=== PATIENT | female | born 1965 | race Caucasian/White ===

== ENCOUNTER 2016-09-01 21:26 | Emergency (ER) | payer MEDICAID, OTHER ==
--- NOTE | 2016-09-01 22:42 | ED Physician Chart ---
Chief Complaint/HPI - Patient Information Date Seen:: 09/01/16 Time Seen:: 22:37 Chief Complaint:: cut lt hand History of Present Illness:: pt was using a knife to trim hedge...was reaching w other hand to pull a branch and stuck her l hand w knife. injury was 2 hrs ago..pt washed hand after. cut is to lt hand at thenar webspace. bleed was brisk earlier but has resolved. pt was txd for dental carry w tooth extraction last week. was on abx but finished. has pain med from dentist. pt admits is homeless..was [place] [facility]. has education and sees psychiatrist. is on psych meds but feels stable lately. Allergies:: Allergies Allergy/AdvReac Type Severity Reaction Status Date / Time No Known Allergies Allergy Verified 09/01/16 22:00 Vitals:: Vital Signs - 8 hr 09/01/16 21:40 Temp 98.4 F HR 71 RR 18 BP 132/49 O2 Sat % 97 Historian:: Patient Review of Systems - Review of Systems General/Constitutional: No fever, No chills, No weight loss, No weakness, No diaphoresis, No edema, No loss of appetite Skin: No skin lesions, No rash, No bruising Head: No headache, No light-headedness Eyes: No loss of vision, No pain, No diplopia ENT: No earache, No nasal drainage, No sore throat, No tinnitus Neck: No neck pain, No swelling, No thyromegaly, No stiffness, No mass noted Cardio Vascular: No chest pain, No palpitations, No PND, No orthopnea, No edema Pulmonary: No SOB, No cough, No sputum, No wheezing GI: No nausea, No vomiting, No diarrhea, No pain, No melena, No hematochezia, No constipation, No hematemesis G/U: No dysuria, No frequency, No hematuria Musculoskeletal: No bone or joint pain, No back pain, No muscle pain, Other (l hand pain) Endocrine: No polyuria, No polydipsia Psychiatric: Prior psych history, No depression, No anxiety, No suicidal ideation Hematopoietic: No bruising, No lymphadenopathy Allergic/Immuno: No urticaria, No angioedema Neurological: No syncope, No focal symptoms, No weakness, No paresthesia, No headache, No seizure, No dizziness, No confusion, No vertigo Past Medical History - Past Medical History Social History: Smoker, Homeless Psychiatricy History: Other (ptsd) Medication: Reviewed Family Medical History - Family Member Mother Hx Family Cancer: Yes (BRAIN CA) Physical Exam - Physical Examination General/Constitutional: Awake, Well-developed, well-nourished, Alert, No distress, GCS 15, Non-toxic appearing, Ambulatory Head: Atraumatic Eyes: Lids, conjuctiva normal, PERRL, EOMI Skin: Nl inspection, No rash, No skin lesions, No ecchymosis, Well hydrated, No lymphadenopathy ENMT: External ears, nose nl, Nasal exam nl, Lips, teeth, gums nl Neck: Nontender, Full ROM w/o pain, No JVD, No nuchal rigidity, No bruit, No mass, No stridor Respiratory: Nl effort/Exclusion, Clear to Auscultation, No Wheeze/Rhonchi/Rales Cardio Vascular: RRR, No murmur, gallop, rubs, NL S1 S2 GI: No tenderness/rebounding/guarding, No organomegaly, No hernia, Normal BS's, Nondistended, No mass/bruits, No McBurney tenderness : No CVA tenderness Extremities: No tenderness or effusion, Full ROM, normal strength in all extremities, No edema, Normal digits & nails Other Extremities comments:: l hand has a 1.5 cm gapin g lac over thenar webspace. ok rom of thumb. ok sensation of m/l thumb. cap refill ok. exam into open wound w light and forceps shows no f.b. nor deep damage from wound. no n/v inj. no open joint capsule etc. Neuro/Psych: Alert/oriented, DTR's symmetric, Normal sensory exam, Normal motor strength, Judgement/insight normal, Mood normal, Normal gait, No focal deficits Misc: normal gait, Normal back, No paraspinal tenderness Assessment Location:: left thenar webspace lac 1.5 cm w deep potential space opened. Laceration Type:: Intermediate Wound Length: 1.5 cm Prep/Irrigation:: betadyne prep. ns copious irrigation. explored no f.b. l hand has a 1.5 cm gapin g lac over thenar webspace. ok rom of thumb. ok sensation of m/l thumb. cap refill ok. exam into open wound w light and forceps shows no f.b. nor deep damage from wound. no n/v inj. no open joint capsule etc. closed wound w 5.0 nylon x 3 simple sutures. Inspection: NO FB ED Septic Shock - . Is Septic Shock (SBP<90, OR Lactate>4 mmol\L) present?: No - <6hrs of presentation: Vital Signs: Vital Signs - 8 hr 09/01/16 21:40 Temp 98.4 F HR 71 RR 18 BP 132/49 O2 Sat % 97 Reassessment (Disposition) - Reassessment Reassessment Condition:: Improved - Diagnosis Diagnosis:: 1.5 cm lac to left thenar webspace - Aftercare/Follow up Instructions Aftercare/Follow-Up Instructions:: Counseled pt regarding lab results/diagnosis & need follow up, Refer to Discharge Instructions Medication Prescribed:: keflex - Patient Disposition Discharge/Transfer:: Home Condition at Disposition:: Improved
[2016-09-01] MEDS ORDERED: Bacitracin pkt 1 gm Pkt TP STA (22:45)
[2016-09-01] MEDS ORDERED: Bacitracin pkt 1 gm Pkt TP ONE (22:55)
== END 2016-09-01 23:30 | disposition home or self-care (01) ==
LOC: ER 21:26
DX: S61.412A Laceration without foreign body of left hand, initial encounter (principal); F17.200 Nicotine dependence, unspecified, uncomplicated; Z59.0 Homelessness; W26.0XXA Contact with knife, initial encounter; Y93.89 Activity, other specified; Y92.89 Other specified places as the place of occurrence of the external cause; Y99.8 Other external cause status
CPT/HCPCS: 12001; A4217; J2001; Z7502; Z7610

== ENCOUNTER 2016-11-28 10:45 | Emergency (ER) | payer OTHER ==
--- NOTE | 2016-12-01 14:38 | ER Physician Documentation ---
DATE OF SERVICE: IDENTIFICATION: A 51-year-old female patient. The patient's chief complaint is that she has some pain in the left upper arm and some generalized aches and pains and she has a few medical conditions. She brought her son for checkups. She and her son both live in a ____, both homeless. She has gotten 3 list of medications that will be listed below. HISTORY OF PRESENT ILLNESS: The patient has no definite history of any fracture, falls, or injury, etc. She says she has some aches in the left side of her arm, mostly in between the elbow and wrist, but I do not find anything positive over there. There is no history of any fracture or injury, etc., that could be noted. She has history of some aches and pains for which she takes the following medications: Tramadol 50 mg 1 tablet by mouth every 24 hours and as needed, she takes gabapentin 100 mg 1 capsule by mouth 3 times a day plus she takes hydroxyzine pamoate 50 mg capsule, the generic for Vistaril tablet, for dizziness. Other than that, the patient does not complain of any significant complaint. She has a dog with her. She denies any diabetes, hypertension, rheumatic fever, valvular heart disease, pericardial disease, cardiomyopathy, any significant endocrine disease. She looks good. She wears clean clothes. She has a dog. She has no other ____. REVIEW OF SYSTEMS: Essentially benign and negative. She does not smoke. Occasionally wine drinker. PAST HISTORY: Essentially benign and negative except for the right tooth was hurting and was removed by her dentist and that area still sometimes occasionally hurts. She was advised to see her dentist again in the future FAMILY HISTORY: Benign and negative. PERSONAL HISTORY: She is from her , has 2 children, one son was on bed #5, who was brought here for dental infection. She does not have anything major going on with her as far as physical condition, impairment, or other problems. For her medical or psychiatric problems, she is taking all this 3 medications that have been prescribed. PHYSICAL EXAMINATION: GENERAL: The patient appears to be awake, alert, oriented, not in any acute cardiorespiratory distress. She appears to be a smart woman, does not appear to be in any acute cardiorespiratory distress. Overall general examination is normal. HEENT: Eyes are normal. Pupils are equal and reacting to light. NECK: Supple. No meningeal signs are noted. No evidence of any deep vein thrombophlebitis. There is no evidence of any fracture. CHEST: Clear, without any rales, rhonchi, or bronchial breathing. ABDOMEN: Soft, benign, and negative. Liver and spleen not enlarged. No free fluid in the abdominal cavity. CENTRAL NERVOUS SYSTEM: Within normal limits. Moves all extremities. No evidence of any paralysis. Walking without any problems. MEDICAL DECISION MAKING: Lab workup was not necessary to be ordered as there is nothing positive finding that is seen. So, that the working diagnosis is pain in the left upper extremity and more so slightly in the left arm in between the left elbow and the left wrist. I do not see any evidence of any fracture, injury, trauma, laceration, or no injury. There is no tenderness. There is no guarding. There is no evidence of any injury. She said she might have had some injury occurred probably 2-3 weeks ago that she does not remember and it is possible that this may be the cause. Other diagnoses that she has, she has depression. She has generalized aches and pains for which she takes tramadol. The patient has other neurogenic aches and pains for which she takes gabapentin also. Since we are not going to do any more blood workup or anything that is not necessary for her, the patient will be discharged home. Based on this diagnosis that she has left arm pain, no apparent cause is detected, she has some mild depression and she has some aches and pains for which she takes tramadol as I mentioned plus she takes gabapentin as well she takes hydroxyzine pamoate for anxiety, this is generic for Vistaril. JOB# [id number]
== END 2016-11-28 12:16 | disposition home or self-care (01) ==
LOC: ER 10:45
DX: M79.622 Pain in left upper arm (principal); F32.9 Major depressive disorder, single episode, unspecified
CPT/HCPCS: Z7502

== ENCOUNTER 2017-04-05 12:25 | Emergency (ER) | payer OTHER ==
--- NOTE | 2017-04-05 12:55 | ED Physician Chart ---
ED Chief Complaint/HPI - Patient Information Date Seen:: 04/05/17 Time Seen:: 12:30 Chief Complaint:: Insect Bite History of Present Illness:: onset x 3 days of localized redness and swelling at right ankle after an insect bite 2 days ago; pt's last tetanus shot: < 5 years; UTD; pt denies LOC, H/As S/T , neck pain, C/P, SOB, Abd. pain, A/N/V/D/C, fever, chills, or urinary s/s Allergies:: Allergies Allergy/AdvReac Type Severity Reaction Status Date / Time morphine Allergy Verified 04/05/17 12:43 Historian:: Patient Review:: Nurse's Note Reviewed ED Review of Systems - Review of Systems General/Constitutional: No fever, No chills, No weight loss, No weakness, No diaphoresis, No edema, No loss of appetite Skin: Skin lesions, Rash, No bruising Head: No headache, No light-headedness Eyes: No loss of vision, No pain, No diplopia ENT: No earache, No nasal drainage, No sore throat, No tinnitus Neck: No neck pain, No swelling, No thyromegaly, No stiffness, No mass noted Cardio Vascular: No chest pain, No palpitations, No PND, No orthopnea, No edema Pulmonary: No SOB, No cough, No sputum, No wheezing GI: No nausea, No vomiting, No diarrhea, No pain, No melena, No hematochezia, No constipation, No hematemesis G/U: No dysuria, No frequency, No hematuria, No nacturia [employer]: No vaginal discharge, No abnormal vaginal bleed, No contraction Musculoskeletal: No bone or joint pain, No back pain, No muscle pain Endocrine: No polyuria, No polydipsia Psychiatric: Prior psych history, No depression, No anxiety, No suicidal ideation, No homicidal ideation, No auditory hallucination, No visual hallucination, Other (PTSD) Hematopoietic: No bruising, No lymphadenopathy Allergic/Immuno: No urticaria, No angioedema Neurological: No syncope, No focal symptoms, No weakness, No paresthesia, No headache, No seizure, No dizziness, No confusion, No vertigo ED Past Medical History - Past Medical History Obtainable: Yes Past Medical History: HTN Family History: HTN Social History: Non Smoker, No Alcohol, No Drug Use, Single Surgical History: Cholecystectomy Psychiatricy History: Other (PTSD) Medication: Reviewed Family Medical History - Family Member Mother History Unknown: Yes Hx Family Cancer: Yes (BRAIN CA) ED Physical Exam - Physical Examination General/Constitutional: Awake, Well-developed, well-nourished, Alert, No distress, GCS 15, Non-toxic appearing, Ambulatory Head: Atraumatic Eyes: Lids, conjuctiva normal, PERRL, EOMI Skin: Nl inspection, No rash, No skin lesions, No ecchymosis, Well hydrated, No lymphadenopathy Other Skin comments:: + Localized Cellulitis around an insect bite PW at the Right Ankle region; no FBs; full ROMs of all joints; no septic joints; no ligament instability; good motor, tendon, and sensory functions; good NV functions ENMT: External ears, nose nl, TM canals nl, Nasal exam nl, Lips, teeth, gums nl , Oropharynx nl, Tonsils nl Neck: Nontender, Full ROM w/o pain, No JVD, No nuchal rigidity, No bruit, No mass, No stridor Other Neck comments:: supple; no meningeal signs; no cervical tenderness; no bruits Respiratory: Nl effort/Exclusion, Clear to Auscultation, No Wheeze/Rhonchi/Rales Cardio Vascular: RRR, No murmur, gallop, rubs, NL S1 S2, Carotid/Femoral/Distal pulses equal bilaterally GI: No tenderness/rebounding/guarding, No organomegaly, No hernia, Normal BS's, Nondistended, No mass/bruits, No McBurney tenderness Other GI comments:: no pulsatile masses : No CVA tenderness Extremities: No tenderness or effusion, Full ROM, normal strength in all extremities, No edema, Normal digits & nails Neuro/Psych: Alert/oriented, DTR's symmetric, Normal sensory exam, Normal motor strength, Judgement/insight normal, Mood normal, Normal gait, No focal deficits Misc: Normal back, No paraspinal tenderness ED Septic Shock - . Is Septic Shock (SBP<90, OR Lactate>4 mmol\L) present?: No ED Reassessment (Disposition) - Reassessment Reassessment:: pt is asymptomatic upon discharge Reassessment Condition:: Improved - Diagnosis Diagnosis:: Localized Cellulitis; Rash; Puncture Wound; Insect Bite; Insect Bite Wound; Animal Bite - Aftercare/Follow up Instructions Aftercare/Follow-Up Instructions:: Counseled pt regarding lab results/diagnosis & need follow up, Refer to Discharge Instructions, Counseled pt & family regarding lab results/diagnosis & need follow up Medication Prescribed:: Rx: Keflex 500mg po qid x 10 days; Neosporin Ointment bid x 14 days; Warm Compresses to affected areas; Skin/Wound Care Instructions; take medications as prescribed - Patient Disposition Discharge/Transfer:: Home Condition at Disposition:: Stable, Improved (RTER prn if existing s/s reoccur and/or get worse and/or any other new s/s occur; ACIs given for all above Dx; Refer to Distribution Estimator/Vascular Surgeon/Manager Civil MURPHY; F/U with PMD in one day or prn; RTER prn if concerned)
== END 2017-04-05 13:20 | disposition home or self-care (01) ==
LOC: ER 12:25
DX: L03.115 Cellulitis of right lower limb (principal); I10 Essential (primary) hypertension; S90.561A Insect bite (nonvenomous), right ankle, initial encounter; W57.XXXA Bitten or stung by nonvenomous insect and other nonvenomous arthropods, initial encounter; Y93.89 Activity, other specified; Y92.89 Other specified places as the place of occurrence of the external cause; Y99.8 Other external cause status
CPT/HCPCS: Z7502

== ENCOUNTER 2017-05-19 19:56 | Inpatient (IN) | payer OTHER ==
[2017-05-19 20:34] LABS: URINE MICROSCOPIC INDICATED? YES; URINE SOURCE RANDOM
[2017-05-19 20:37] LABS: URINE BILIRUBIN NEGATIVE (NEGATIVE); URINE BLOOD LARGE (NEGATIVE); URINE GLUCOSE (UA) NEGATIVE (NEGATIVE); URINE KETONE NEGATIVE (NEGATIVE); URINE LEUKOCYTE ESTERASE TRACE (NEGATIVE); URINE NITRATE NEGATIVE (NEGATIVE); URINE PROTEIN 100 mg/dL (NEGATIVE); URINE UROBILINOGEN 0.2 E.U./dL (0.2 - 1.0)
[2017-05-19 20:45] LABS: URINE COLOR YELLOW
[2017-05-19 20:46] LABS: URINE CLARITY HAZY (CLEAR)
[2017-05-19 20:55] LABS: URINE BACTERIA NONE SEEN /hpf (NONE SEEN); URINE EPITHELIAL CELLS FEW /lpf (FEW); URINE RBC >100 /hpf (0-5)
[2017-05-19] MEDS ORDERED: Sodium Chloride 0.9% 1,000 ML IV ONE (20:57)
[2017-05-19] MEDS ORDERED: cefTRIAXone 1 GM in Sodium Chloride 0.9% 50 ML IV ONE (20:59)
--- NOTE | 2017-05-19 21:05 | ED Physician Chart ---
ED Chief Complaint/HPI - Patient Information Date Seen:: 05/19/17 Time Seen:: 20:00 Chief Complaint:: Abdominal Pain History of Present Illness:: onset x one day or intermittent, diffuse, crampy abdominal pain and flank pain with N/V/D; no trauma, H/As, S/T, neck pain, C/P, cough, A/C, fever, chills, or urinary s/s Allergies:: Allergies Allergy/AdvReac Type Severity Reaction Status Date / Time morphine Allergy Verified 05/19/17 20:22 Vitals:: Vital Signs - 8 hr 05/19/17 20:00 Temp 98.5 F HR 60 RR 18 BP 137/71 O2 Sat % 98 Historian:: Patient Review:: Nurse's Note Reviewed ED Review of Systems - Review of Systems General/Constitutional: No fever, No chills, No weight loss, No weakness, No diaphoresis, No edema, No loss of appetite Skin: No skin lesions, No rash, No bruising Head: No headache, No light-headedness Eyes: No loss of vision, No pain, No diplopia ENT: No earache, No nasal drainage, No sore throat, No tinnitus Neck: No neck pain, No swelling, No thyromegaly, No stiffness, No mass noted Cardio Vascular: No chest pain, No palpitations, No PND, No orthopnea, No edema Pulmonary: No SOB, No cough, No sputum, No wheezing GI: Nausea, Vomiting, Diarrhea, Pain, No melena, No hematochezia, No constipation, No hematemesis G/U: No dysuria, No frequency, No hematuria, No nacturia Grinder: No vaginal discharge, No abnormal vaginal bleed, No contraction Musculoskeletal: No bone or joint pain, No back pain, No muscle pain Endocrine: No polyuria, No polydipsia Psychiatric: No prior psych history, No depression, No anxiety, No suicidal ideation, No homicidal ideation, No auditory hallucination, No visual hallucination Hematopoietic: No bruising, No lymphadenopathy Allergic/Immuno: No urticaria, No angioedema Neurological: No syncope, No focal symptoms, No weakness, No paresthesia, No headache, No seizure, No dizziness, No confusion, No vertigo ED Past Medical History - Past Medical History Obtainable: Yes Past Medical History: HTN, PUD/GERD, Arthritis Family History: HTN Social History: Non Smoker, No Alcohol, No Drug Use, Surgical History: Cholecystectomy Psychiatricy History: None Medication: Reviewed Family Medical History - Family Member Mother History Unknown: Yes Hx Family Cancer: Yes (BRAIN CA) ED Physical Exam - Physical Examination General/Constitutional: Awake, Well-developed, well-nourished, Alert, No distress, GCS 15, Non-toxic appearing, Ambulatory Head: Atraumatic Eyes: Lids, conjuctiva normal, PERRL, EOMI Skin: Nl inspection, No rash, No skin lesions, No ecchymosis, Well hydrated, No lymphadenopathy ENMT: External ears, nose nl, TM canals nl, Nasal exam nl, Lips, teeth, gums nl , Oropharynx nl, Tonsils nl Neck: Nontender, Full ROM w/o pain, No JVD, No nuchal rigidity, No bruit, No mass, No stridor Respiratory: Nl effort/Exclusion, Clear to Auscultation, No Wheeze/Rhonchi/Rales Cardio Vascular: RRR, No murmur, gallop, rubs, NL S1 S2, Carotid/Femoral/Distal pulses equal bilaterally GI: No tenderness/rebounding/guarding, No organomegaly, No hernia, Normal BS's, Nondistended, No mass/bruits, No McBurney tenderness, Rectum exam nl : No CVA tenderness Extremities: No tenderness or effusion, Full ROM, normal strength in all extremities, No edema, Normal digits & nails Neuro/Psych: Alert/oriented, DTR's symmetric, Normal sensory exam, Normal motor strength, Judgement/insight normal, Mood normal, Normal gait, No focal deficits Misc: Normal back, No paraspinal tenderness ED Labs/Radiology/EKG Results - Lab Results Results: Laboratory Tests 05/19/17 05/19/17 20:30 20:30 Urine Source RANDOM Urine Color YELLOW Urine Clarity HAZY Urine pH 7.0 Ur Specific [place] 1.020 Urine Protein 100 H Urine Glucose (UA) NEGATIVE Urine Ketones NEGATIVE Urine Blood LARGE H Urine Nitrate NEGATIVE Urine Bilirubin NEGATIVE Urine Urobilinogen 0.2 Ur Leukocyte Esterase TRACE H Urine RBC >100 H Urine WBC 2-5 Ur Epithelial Cells FEW Urine Bacteria NONE SEEN Urine Test NEGATIVE Comments:: U/A: + Blood; + Pyuria - Radiology Results Comments:: Right UVJ Calculus - EKG Interpretations EKG Time:: 20:30 Rate & Rhythm: 60; NSR Comments:: non-specific st-t changes ED Septic Shock - . Is Septic Shock (SBP<90, OR Lactate>4 mmol\L) present?: No - <6hrs of presentation: Vital Signs: Vital Signs - 8 hr 05/19/17 20:00 Temp 98.5 F HR 60 RR 18 BP 137/71 O2 Sat % 98 ED Reassessment (Disposition) - Diagnosis Diagnosis:: Dx: Abdominal Pain; Flank Pain; Hematuria; UTI; Nephrolithiasis; Ureterolithiasis; N/V - Aftercare/Follow up Instructions Aftercare/Follow-Up Instructions:: Counseled pt regarding lab results/diagnosis & need follow up, Counseled pt & family regarding lab results/diagnosis & need follow up - Patient Disposition Discharge/Transfer:: Acute Care w/in this hosp Accepting Physician:: Dr. Good Time Called:: 2149 Time Responded:: 21:50 Admitted to:: Med/Surg Spoke to:: Dr. Good Admitting Medical Physician:: Dr. Good Condition at Disposition:: Stable, Improved
[2017-05-19 21:19] LABS: % BASOPHILS 0.5 % (0.0-2.0); % EOSINOPHILS 0.9 % (0.0-5.0); % LYMPHOCYTES 11.4 % (20.0-50.0); % MONOCYTES 4.4 % (2.0-10.0); % NEUTROPHILS 82.8 % (40.0-80.0); EOSINOPHILE ABSOLUTE 0.1 Th/cmm (0.1-0.4); HEMATOCRIT 37.8 % (41.0-60); HEMOGLOBIN 12.6 gm/dL (12-16); LYMPHOCYTE ABSOLUTE 0.9 Th/cmm (1.5-3.0); MEAN CELL VOLUME 88.3 fl (81-100); MEAN CORPUSCULAR HEMOGLOBIN 29.4 pg (27.0-31.0); MEAN CORPUSCULAR HGB CONC 33.3 pg (28.0-36.0); MEAN PLATELET VOLUME 7.9 fl; MONOCYTE ABSOLUTE 0.3 Th/cmm (0.3-1.0); NEUTROPHILE ABSOLUTE 6.6 Th/cmm (1.8-8.0); PLATELET COUNT 230 Th/cmm (150-400); RED BLOOD COUNT 4.29 Mil/cmm (3.80-5.10); RED CELL DISTRIBUTION WIDTH 12.5 % (11.5-20.0); WHITE BLOOD COUNT 7.9 Th/cmm (4.8-10.8)
[2017-05-19 21:26] LABS: INR 0.93 (0.5-1.4); PROTHROMBIN TIME (TEST) 9.7 SECONDS (9.5-11.5)
[2017-05-19 21:34] LABS: ALB/GLOB RATIO 1.7 (1.0-1.8); ALBUMIN 3.7 gm/dL (3.7-5.3); ALKALINE PHOSPHATASE 62 U/L (34-104); ANION GAP 8.9 (7.0-16.0); BILIRUBIN,TOTAL 0.3 mg/dL (0.3-1.0); BUN - UREA NITROGEN 10 mg/dL (7-25); CALCIUM SERUM 8.8 mg/dL (8.6-10.3); CARBON DIOXIDE 28.5 mEq/L (21.0-31.0); CHLORIDE 104 mEq/L (98-107); CHOLESTEROL 139 mg/dL (<200); CREATININE - SERUM 0.7 mg/dL (0.6-1.2); GFR AFRICAN-AMERICAN > 60.0 ml/min (>90); GFR NON AFRICAN-AMERICAN > 60.0 ml/min; GLUCOSE 99 mg/dL (70-105); HDL -HIGH DENSITY LIPOPROTEIN 33 mg/dL (23-92); POTASSIUM SERUM 3.4 mEq/L (3.5-5.1); SGOT 15 U/L (13-39); SGPT/ALT 12 U/L (7-52); SODIUM SERUM 138 mEq/L (136-145); TOTAL PROTEIN,SERUM 5.9 gm/dL (6.0-8.3); TRIGLYCERIDES 196 mg/dL (<150)
[2017-05-19 21:35] LABS: AMYLASE SERUM 37 U/L (29-103); LIPASE 17 U/L (11-82)
[2017-05-19] MEDS ORDERED: HYDROmorphone 2 mg/mL 1mL Vial IVP PRN (22:48)
[2017-05-19] MEDS ORDERED: D5-0.45NS w/20 mEq KCL 1,000 ML IV SCH (23:00)
[2017-05-20] MEDS ORDERED: HYDROmorphone 1 mg/mL 1mL Syr IVP PRN (00:56)
[2017-05-20] MEDS: D5-0.45NS w/20 mEq KCL 1,000 ML IV SCH ×2 (04:00→15:42)
[2017-05-20 04:05] VITALS: BP 145/77
[2017-05-20 05:55] LABS: % BASOPHILS 0.5 % (0.0-2.0); % EOSINOPHILS 2.7 % (0.0-5.0); % LYMPHOCYTES 28.1 % (20.0-50.0); % MONOCYTES 6.9 % (2.0-10.0); % NEUTROPHILS 61.8 % (40.0-80.0); EOSINOPHILE ABSOLUTE 0.2 Th/cmm (0.1-0.4); HEMATOCRIT 33.9 % (41.0-60); HEMOGLOBIN 11.3 gm/dL (12-16); LYMPHOCYTE ABSOLUTE 1.6 Th/cmm (1.5-3.0); MEAN CELL VOLUME 87.8 fl (81-100); MEAN CORPUSCULAR HEMOGLOBIN 29.3 pg (27.0-31.0); MEAN CORPUSCULAR HGB CONC 33.3 pg (28.0-36.0); MONOCYTE ABSOLUTE 0.4 Th/cmm (0.3-1.0); NEUTROPHILE ABSOLUTE 3.4 Th/cmm (1.8-8.0); RED BLOOD COUNT 3.85 Mil/cmm (3.80-5.10); RED CELL DISTRIBUTION WIDTH 12.4 % (11.5-20.0)
[2017-05-20 05:58] LABS: PLATELET COUNT 176 Th/cmm (150-400); WHITE BLOOD COUNT 5.6 Th/cmm (4.8-10.8)
[2017-05-20 06:12] LABS: ALB/GLOB RATIO 1.8 (1.0-1.8); ALBUMIN 3.2 gm/dL (3.7-5.3); ALKALINE PHOSPHATASE 52 U/L (34-104); ANION GAP 6.4 (7.0-16.0); BILIRUBIN,TOTAL 0.2 mg/dL (0.3-1.0); BUN - UREA NITROGEN 9 mg/dL (7-25); CALCIUM SERUM 8.5 mg/dL (8.6-10.3); CARBON DIOXIDE 30.2 mEq/L (21.0-31.0); CHLORIDE 107 mEq/L (98-107); CREATININE - SERUM 0.8 mg/dL (0.6-1.2); GFR AFRICAN-AMERICAN > 60.0 ml/min (>90); GFR NON AFRICAN-AMERICAN > 60.0 ml/min; GLUCOSE 118 mg/dL (70-105); POTASSIUM SERUM 3.6 mEq/L (3.5-5.1); SGOT 13 U/L (13-39); SGPT/ALT 11 U/L (7-52); SODIUM SERUM 140 mEq/L (136-145)
--- NOTE | 2017-05-20 09:03 | Diagnostic Imaging Report ---
CT scan abdomen and pelvis without intravenous contrast HISTORY: Pain Total DLP equals 516 CTDI equals 11.0 Axial sections were obtained from the xiphoid process down to the pubic symphysis. The liver exhibits a homogeneous parenchyma. No focal lesions. The spleen appears normal. No abnormality seen in the region of the pancreas. There is relatively severe degree of hydronephrosis involving the right renal collecting system. An approximate 7 mm calculus noted within the dilated right renal pelvis. An approximate 3 mm calculus noted at the right ureterovesical junction. There is extensive haziness about the dilated right renal pelvis associated with perinephric stranding. The changes may be secondary to obstruction. Superimposed inflammatory change present polynephritis) cannot be excluded. The left kidney appears normal. The pelvis demonstrates preservation of normal fat planes. No abnormal masses are seen. IMPRESSION: 1. 3 mm calculus at the right ureterovesical junction associated with relatively severe hydronephrosis involving the right renal collecting system. Additional 7 mm calculus noted within the dilated right renal pelvis. There is extensive haziness about the renal pelvis along with perinephric stranding. The finding may be related to obstruction. However, superimposed inflammatory change (pyelonephritis) cannot be excluded.
[2017-05-20] MEDS ORDERED: PRAZOSIN HCL 1 MG PO SCH (17:00)
--- NOTE | 2017-05-20 17:43 | History & Physical ---
ADMIT DATE: 05/19/2017 CHIEF COMPLAINT: Severe right flank pain for 1 day duration. HISTORY OF PRESENT ILLNESS: The patient is a 52-year-old female with a long history of depression, chronic smoking, presented to the Emergency Room with severe pain on the right flank for 1 day duration, evaluated by the ER physician. Initial workup significant for acute pyelonephritis, acute hydronephrosis with a 3 mm stone stuck in the JUSTINE at the right ureterovesicular junction. The patient admitted to the hospital, started on IV fluid, antibiotic, Flomax. The patient denies any chest pain, no nausea or vomiting. PAST MEDICAL HISTORY: Significant for depression, chronic smoking. PAST SURGICAL HISTORY: She has history of cholecystectomy. ALLERGIES: None. MEDICATIONS: Follow admission reconciliation. SOCIAL HISTORY: Chronic smoker. No alcohol or drug use. FAMILY HISTORY: Noncontributory. REVIEW OF SYSTEMS: RENAL SYSTEM: No history of chronic renal disorder. CARDIOVASCULAR SYSTEM: No coronary artery disease. ENDOCRINE SYSTEM: No diabetes or thyroid problem. GASTROINTESTINAL SYSTEM: No upper or lower gastrointestinal bleed. NEUROLOGICAL: She has history of depression. MUSCULOSKELETAL SYSTEM: No muscular dystrophy. PHYSICAL EXAMINATION: GENERAL: She is awake, alert, oriented. VITAL SIGNS: Temperature is 96.9, heart rate 48, blood pressure 138/68. HEENT: Normocephalic. Pupils reactive to light and accommodation. Sclerae clear. NECK: Supple. Negative for lymphadenopathy, JVD or bruit. CHEST: Bilateral normal, rhonchi or wheezing. HEART: S1, S2 normal. No gallop rhythm. ABDOMEN: Soft, bowel sounds positive. EXTREMITIES: No edema. NEUROLOGICAL: She is awake, alert, oriented, no focal motor deficits. Cranial nerves 2-12 are intact. LABORATORY DATA: White blood cell is 5.6, hemoglobin 11.3, hematocrit 33.9, platelets 176. Sodium 140, potassium 3.6, BUN is 9, creatinine ___. ASSESSMENT: 1. Acute right-sided pyelonephritis. 2. Acute right side hydronephrosis secondary to 3 mm stone obstruction of the right ureter. 3. History of depression. PLAN: The patient admitted to the hospital under Dr. Good's service, started on IV fluid, IV antibiotic, Flomax 0.8 mg once a day. The patient will resume her home medication. Case was discussed with the manager of case management to transfer the patient to [facility] to be seen by the urologist for possible stent placement. The patient is a full code. JOB# [id number]
[2017-05-20] MEDS ORDERED: cefTRIAXone 1 GM in Sodium Chloride 0.9% 50 ML IV SCH (21:00)
[2017-05-21] MEDS: D5-0.45NS w/20 mEq KCL 1,000 ML IV SCH (05:25)
[2017-05-21] MEDS ORDERED: Non-Formulary Item 1 EA (Omeprazole [Omeprazole] 20 MG) PO SCH (09:00)
[2017-05-21] MEDS ORDERED: Pantoprazole 40 mg EC Tab PO SCH (09:00)
[2017-05-21] MEDS ORDERED: HYDROmorphone 2 mg/mL 1mL Vial IVP PRN (13:25)
== END 2017-05-21 17:53 | disposition short-term general hospital (02) | DRG 465 ==
LOC: ER 19:56 → MSI 22:55
PROVIDERS: ADMIT Family Medicine; ATTEND Family Medicine
DX: N13.2 Hydronephrosis with renal and ureteral calculous obstruction (principal); F17.210 Nicotine dependence, cigarettes, uncomplicated; N10 Acute pyelonephritis; I10 Essential (primary) hypertension; K21.9 Gastro-esophageal reflux disease without esophagitis; F32.9 Major depressive disorder, single episode, unspecified; M19.90 Unspecified osteoarthritis, unspecified site; Z88.5 Allergy status to narcotic agent; Z90.49 Acquired absence of other specified parts of digestive tract; Z80.8 Family history of malignant neoplasm of other organs or systems; Z82.49 Family history of ischemic heart disease and other diseases of the circulatory system; Z71.89 Other specified counseling
CPT/HCPCS: 36415-UA; 80053-TC; 80061-TC; 81001-TC; 81025-TC; 82150-TC; 82550-TC; 83690-TC; 83880-TC; 84484-TC; 85025-TC; 85610-TC; 87086-90; 90784; 93005; 94760; 96375; J0696; J1170; J2405; J7030; Z7610